=== PATIENT | male | born 1980 | race Caucasian/White ===

== ENCOUNTER 2017-04-03 14:05 | Emergency (ER) | payer BC ==
[~2017-04-03 14:05] MED LIST: IBUPROFEN PO; VALTREX PO
== END 2017-04-03 16:15 | disposition home or self-care (01) ==
LOC: CFTX 14:05 → CED 14:05 → CFTX 16:05
DX: S80.861A Insect bite (nonvenomous), right lower leg, initial encounter (principal); S80.862A Insect bite (nonvenomous), left lower leg, initial encounter; F17.210 Nicotine dependence, cigarettes, uncomplicated; W57.XXXA Bitten or stung by nonvenomous insect and other nonvenomous arthropods, initial encounter
CPT/HCPCS: 99282